=== PATIENT | female | born 1955 | race Caucasian/White ===

== ENCOUNTER 2019-11-10 10:27 | Outpatient (CLI) | payer OTHER, SELFPAY ==
--- NOTE | 2019-11-10 10:37 | XR_ITS ---
WS: [id number] Lumbar spine, 3 views, 11/10/2019 Clinical Data: LOW BACK PAIN Comparison: None. Findings: No compression fractures or subluxation is seen. No disc space narrowing is seen. The transverse proc esses and SI joints are normal. Osteoporosis is present. There are minimal anterior osteophytic spurs at L4 and L5. There is calcific ation of the abdominal aorta but no aneurysm. XR/XR lumbar spine 2-3V* [id number] Impression: 1. Osteoarthritis at L4 and L5. 2. Osteoporosis.
== END 2019-11-10 10:28 | disposition home or self-care (01) ==
LOC: RAD 10:31
PROVIDERS: Visit Provider Internal Medicine
DX: M47.816 Spondylosis without myelopathy or radiculopathy, lumbar region (principal); M81.0 Age-related osteoporosis without current pathological fracture
CPT/HCPCS: 72100

== ENCOUNTER 2020-04-10 10:23 | Outpatient (CLI) | payer OTHER, SELFPAY ==
--- NOTE | 2020-04-10 10:31 | XR_ITS ---
WS: [id number] LEFT HIP HISTORY: PAIN COMPARISON: None available. LEFT hip: No acute fracture or dislocation. Mild narrowing of the hip joint. Mild sclerosis along the superior acetabulum. XR/XR hip LT 2-3V wo/w pel* [id number] IMPRESSION: 1. No hip fracture. 2. Mild LEFT hip osteoarthritis.
== END 2020-04-10 10:24 | disposition home or self-care (01) ==
LOC: RAD 10:25
PROVIDERS: Visit Provider Dermatology
DX: M16.12 Unilateral primary osteoarthritis, left hip (principal)
CPT/HCPCS: 73502